=== PATIENT | female | born 1985 | race African-American/Black ===

== ENCOUNTER 2017-06-20 07:46 | Inpatient (IN) | payer SELFPAY ==
[2017-06-20] MEDS ORDERED: LACTATED RINGER'S 1000 ML INJ 1,000 ML IV (08:33)
[2017-06-20] MEDS ORDERED: LIDOCAINE HCL 1% 50 ML VIAL INFIL (08:45)
[2017-06-20] MEDS ORDERED: MINERAL OIL 10 ML VIAL TOPICAL (08:45)
[2017-06-20] MEDS ORDERED: LIDOCAINE HCL 1% 50 ML VIAL I-DERMAL (08:45)
[2017-06-20] MEDS ORDERED: CITRIC ACID-SODIUM CITRATE LIQ 30 ML UDC PO (08:45)
[2017-06-20] MEDS ORDERED: OXYTOCIN 30 UNITS-500ML PREMIX 500 ML IV ×2 (08:45→22:30)
[2017-06-20] MEDS ORDERED: SODIUM CHLORID 0.9% 500 ML INJ 500 ML IV (08:45)
[2017-06-20] MEDS ORDERED: ONDANSETRON HCL 4 MG/2 ML VIAL IV PUSH (08:45)
[2017-06-20] MEDS ORDERED: SODIUM CHLOR 0.9% 1000 ML INJ 1,000 ML IV (08:53)
[2017-06-20] MEDS: LACTATED RINGER'S 1000 ML INJ 1,000 ML IV ×2 (08:56→14:39)
[2017-06-20] MEDS: PENICILLIN G POTASSIUM INJ 5,000,000 UNITS in SODIUM CHLORIDE 0.9% INJ 100 ML IV (08:56)
[2017-06-20 08:57] LABS: AUTOMATED NEUTROPHIL # 6.6 TH/MM3 (1.8-7.7); BASOPHIL % 0.5 % (0.0-2.0); EOSINOPHIL # 0.1 TH/MM3 (0-0.4); EOSINOPHIL % 0.6 % (0.0-4.0); HEMATOCRIT 35.7 % (35.0-46.0); HEMO FLAGS DIFF FINAL; HEMOGLOBIN 11.7 GM/DL (11.6-15.3); LYMPH % 25.7 % (9.0-44.0); LYMPHOCYTE # 2.6 TH/MM3 (1.0-4.8); MEAN CELL VOLUME 63.9 FL (80.0-100.0); MEAN CORPUSCULAR HEMOGLOBIN 20.9 PG (27.0-34.0); MEAN CORPUSCULAR HGB CONC 32.7 % (32.0-36.0); MEAN PLATELET VOLUME 8.3 FL (7.0-11.0); MONO % 7.9 % (0.0-8.0); MONOCYTE # 0.8 TH/MM3 (0-0.9); NEUT % 65.3 % (16.0-70.0); PLATELET COUNT 306 TH/MM3 (150-450); RED BLOOD COUNT 5.59 MIL/MM3 (4.00-5.30); RED CELL DISTRIBUTION WIDTH 16.4 % (11.6-17.2); WHITE BLOOD COUNT 10.2 TH/MM3 (4.0-11.0)
[2017-06-20] MEDS: OXYTOCIN 30 UNITS-500ML PREMIX 500 ML IV (08:57)
[2017-06-20 09:07] LABS: BACTERIA, URINE FEW /hpf; BILIRUBIN, URINE NEG (NEG); BLOOD, URINE NEG (NEG); COMMENT (UR) CULT NOT INDICATED; CULTURE IF INDICATED CULT NOT INDICATED; GLUCOSE,URINE NEG (NEG); KETONE, URINE NEG (NEG); MUCUS URINE FEW /lpf (OCC); NITRITE,URINE NEG (NEG); PH, URINE 6.5 (5.0-8.5); SQUAMOUS EPITHELIAL CELL URINE 13 /hpf (0-5); URINE COLOR YELLOW (YELLW/STRAW); URINE LEUKOCYTE ESTERASE MOD (NEG)
[2017-06-20 09:09] LABS: AMPHETAMINE, URINE NEG (NEG); BARBITURATES, URINE NEG (NEG); BENZODIAZEPINE,URINE NEG (NEG); CANNABINOIDS, URINE NEG (NEG); COCAINE, URINE NEG (NEG)
[2017-06-20 10:02] LABS: AMPHETAMINE, URINE NEG (NEG); BARBITURATES, URINE NEG (NEG); BENZODIAZEPINE,URINE NEG (NEG); CANNABINOIDS, URINE NEG (NEG); COCAINE, URINE NEG (NEG)
[2017-06-20] MEDS: PENICILLIN G POTASSIUM INJ 2,500,000 UNITS in SODIUM CHLORIDE 0.9% INJ 100 ML IV ×2 (13:08→17:23)
[2017-06-20] MEDS: ePHEDrine/NS 25 MG/5 ML SYRINGE (14:15)
[2017-06-20] MEDS: fentaNYL 2MCG-BUPIV 0.125% INJ 100 ML (14:15)
[2017-06-20] MEDS: LIDOCAINE HCL 1% PF 5 ML AMPULE (14:21)
[2017-06-20] MEDS ORDERED: fentaNYL 2MCG-BUPIV 0.125% 100 ML EPIDURAL (15:45)
[2017-06-20] MEDS ORDERED: ePHEDrine/NS 25 MG/5 ML SYRINGE IV PUSH (15:45)
[2017-06-20] MEDS ORDERED: DO NOT ADMINISTER ANTICOAGULANTS (15:45)
[2017-06-20] MEDS ORDERED: NO SYSTEM NARCOTICS (15:45)
[2017-06-20] MEDS ORDERED: BENZOCAINE 20% TOPICAL SPRAY 60 ML CAN TOPICAL (22:30)
[2017-06-20] MEDS ORDERED: ONDANSETRON ODT 4 MG TAB PO (22:30)
[2017-06-20] MEDS ORDERED: DOCUSATE SODIUM 50 MG/SENNA 8.6 MG TAB PO (22:30)
[2017-06-20] MEDS ORDERED: ALUMINUM/MAGNESIUM/SIMETH 30 ML CUP PO (22:30)
[2017-06-20] MEDS ORDERED: SODIUM CHLORIDE 0.9% FLUSH 10 ML FLUSH IV FLUSH (22:30)
[2017-06-20] MEDS ORDERED: WITCH HAZEL 50%/GLYCERIN 12.5% 40 PAD JAR TOPICAL (22:30)
[2017-06-20] MEDS ORDERED: IBUPROFEN 800 MG TAB PO (22:30)
[2017-06-21] MEDS: ACETAMINOPHEN 325 MG TAB PO (01:40)
[2017-06-21] MEDS: MEASLES, MUMPS, RUBELLA VACCINE 0.5 ML VIAL SQ (10:28)
[2017-06-21] MEDS: LACTATED RINGER'S 1000 ML INJ 1,000 ML IV ×2 (10:29→17:34)
[2017-06-21] MEDS: SODIUM CHLORIDE 0.9% FLUSH 10 ML FLUSH IV FLUSH (10:29)
[2017-06-22] MEDS: DIPHTH/TETANUS/ACEL PERTUSSIS (BOOSTER) 0.5 ML VIAL/PFS IM (07:59)
[2017-06-22] MEDS: SODIUM CHLORIDE 0.9% FLUSH 10 ML FLUSH IV FLUSH (09:56)
[2017-06-22] MEDS: LACTATED RINGER'S 1000 ML INJ 1,000 ML IV (09:56)
== END 2017-06-22 18:05 | disposition home or self-care (01) | DRG 775 ==
LOC: H2EB 07:46 → H1EA 06-21 00:46
PROC: 10E0XZZ Delivery of Products of Conception, External Approach (ICD-10-PCS; principal; 2017-06-20)
PROC: 3E033VJ Introduction of Other Hormone into Peripheral Vein, Percutaneous Approach (ICD-10-PCS; 2017-06-20)
PROC: 10907ZC Drainage of Amniotic Fluid, Therapeutic from Products of Conception, Via Natural or Artificial Opening (ICD-10-PCS; 2017-06-20)
PROC: 00HU33Z Insertion of Infusion Device into Spinal Canal, Percutaneous Approach (ICD-10-PCS; 2017-06-20)
PROC: 3E0R3BZ Introduction of Anesthetic Agent into Spinal Canal, Percutaneous Approach (ICD-10-PCS; 2017-06-20)
DX: O48.0 Post-term pregnancy (principal); O99.824 Streptococcus B carrier state complicating childbirth; Z30.09 Encounter for other general counseling and advice on contraception; Z3A.41 41 weeks gestation of pregnancy; Z37.0 Single live birth
CPT/HCPCS: 59025; 80307; 81001; 85025; 86900; 86901; 90715